=== PATIENT | male | born 1995 | race Caucasian/White ===

== ENCOUNTER 2024-01-05 05:55 | Day surgery (SDC) | payer OTHER ==
[~2024-01-05] VITALS: Ht 193 cm; Wt 112.8 kg
[~2024-01-05 05:55] MED LIST: LR 1,000 ML IV SCH; NORVASC 5MG5 MG/TAB PO; PLAQUENIL 200M200 MG PO; PREDNISONE10 MG
[2024-01-05 06:47] VITALS: BP 122/86; PULSE 82; TEMP 97.9
[2024-01-05] MEDS ORDERED: Lidocaine PF 1% (10 MG/ML) 5 ML VIAL ONE (07:57)
[2024-01-05] MEDS ORDERED: Lidocaine 2% Viscous 15 ML UNIT DOSE MM ONE (08:24)
[2024-01-05 08:45] VITALS: BP 101/62; PULSE 70; TEMP 97.2
[2024-01-05] MEDS ORDERED: Meperidine 50 MG/ML 1 ML VIAL IV PRN (08:45)
[2024-01-05] MEDS ORDERED: Ondansetron 4 MG/2 ML VIAL IV PRN (08:45)
[2024-01-05] MEDS ORDERED: HYDROmorphone 1 MG/1 ML SYRINGE [PACU/SDC ONLY] IV PRN (08:45)
[2024-01-05 09:00] VITALS: BP 109/70; PULSE 78
[2024-01-05 09:15] VITALS: BP 108/72; PULSE 82
--- NOTE | 2024-01-05 10:20 | NUR ---
0845: PT TO BAY 1 VIA CART FROM PROCEDURE ROOM. ALERT AND ORIENTED. REPORT RECEIVED FROM MARK UMANZOR. VSS. PT DENIES PAIN OR SHORTNESS OF BREATH. PT COUGHING AT TIMES. DOES NOT WANT FOOD OR DRINK AT THIS TIME. NO FURTHER NEEDS NOTED. RESTING IN COT. CALL LIGHT IN REACH. VIDAL, AT BEDSIDE. 0900: ALERT AND ORIENTED. VSS. NO C/O PAIN, NAUSEA OR SHORTNESS OF BREATH. REQUESTING WATER AT THIS TIME. RESTING IN COT. CALL LIGHT IN REACH. VIDAL, AT BEDSIDE. 0915: ALERT AND ORIENTED. VSS. NO C/O PAIN, NAUSEA OR SHORTNESS OF BREATH. TOLERATING WATER. COUGH NOTED AT TIMES. IV DC'D AT THIS TIME. PT DENIES ASSISTANCE WITH DRESSING. 0930: DISCHARGE EDUCATION COMPLETED AT THIS TIME. QUESTIONS WELCOMED AND ANSWERED. PT STATED UNDERSTANDING OF DISCHARGE EDUCATION. DISCHARGE PAPERWORK GIVEN TO PT. 0945: PT AMBULATED INDEPENDENTLY FROM COT TO WHEELCHAIR. PT DISCHARGED TO HOME VIA PERSONAL VEHICLE WITH VIDAL NÚÑEZ.
== END 2024-01-05 09:45 | disposition home or self-care (01) ==
LOC: SDCO 05:55
DX: R91.8 Other nonspecific abnormal finding of lung field (principal); M06.9 Rheumatoid arthritis, unspecified; R06.02 Shortness of breath
CPT/HCPCS: J2704; J7120

== ENCOUNTER → 2024-01-21 | Outpatient (CLI) | payer OTHER ==
[~2024-01-21] MED LIST changes: +Albuterol 0.083% Neb Soln 2.5 MG/3 ML UD IH ONE; -LR 1,000 ML IV SCH
== END ==
LOC: COL.CARD 08:00
DX: R06.02 Shortness of breath (principal)